=== PATIENT | female | born 1930 | race American Indian/Alaskan Native ===

== ENCOUNTER 2017-12-16 07:40 | Day surgery (SDC) | payer MEDICARE ==
[2017-12-16 08:42] VITALS: TEMP 98.2; O2SAT 100
[2017-12-16] MEDS ORDERED: Propofol 10 mg/ml Inj (20 ML) ONE (09:01)
--- NOTE | 2017-12-16 09:03 | CP.SDSHP ---
Same Day Surgery H & P - History Proposed Procedure: colonosocpy Pre-Op Diagnosis: R bleed - Previous Medical/Surgical History Neuro: TIA/CVA Misc: Anemia - Allergies Allergies: Allergies No Known Allergies Allergy (Verified 12/16/17 08:06) - Physical Exam Vital Signs: Vital Signs 12/16/17 12/16/17 08:00 08:59 Temperature 98.2 F 98.2 F Pulse Rate 50 L 50 L Respiratory 19 19 Rate Blood Pressure 136/66 136/66 O2 Sat by Pulse 100 100 Oximetry Mental Status: Alert & Oriented x3 Neuro: WNL Heart: WNL Lungs: WNL GI: WNL - {Optional Preform as Required} Abdomen: WNL - Impression Impression: r bleed,anemia Pt. Evaluated Today:Candidate for Anesthesia & Procedure: Yes - Date & Time Date: 12/16/17 Time: 08:55 Short Stay Discharge - Short Stay Discharge Admitting Diagnosis/Reason for Visit: HEMORRHAGE OF ANUS AND RECTUM Disposition: HOME/ ROUTINE
[2017-12-16 10:09] VITALS: BP 121/65; PULSE 59; RESP 15
== END 2017-12-16 10:55 | disposition home or self-care (01) ==
LOC: C.ENDO 07:40
PROVIDERS: ATTEND Internal Medicine Gastroenterology
DX: K62.5 Hemorrhage of anus and rectum (principal); K57.30 Diverticulosis of large intestine without perforation or abscess without bleeding
CPT/HCPCS: 45378; J2704